=== PATIENT | female | born 1980 | race American Indian/Alaskan Native ===

== ENCOUNTER 2019-02-22 10:42 | Emergency (ER) | payer MEDICAID ==
--- NOTE | 2019-02-22 11:26 | XRay Report ---
LEFT KNEE, 3 views: History: Fall, pain The bony architecture is intact without evidence of fracture or dislocation. No significant soft tissue abnormality is seen. IMPRESSION: Normal left knee.
--- NOTE | 2019-02-22 11:27 | XRay Report ---
LEFT ANKLE, 3 views: History: Fall, pain. Bone mineralization is normal. An oblique minimally displaced distal left fibular fracture is identified just superior to the ankle joint. Displacement measures 1-2 mm. The distal tibia and talar dome are intact. No joint pathology. Moderate lateral soft tissue swelling. IMPRESSION: Distal fibular fracture.
[2019-02-22] MEDS ORDERED: NORCO 5/325 PO ONE (11:49)
[2019-02-22] MEDS ORDERED: IBUPROFEN PO ONE (11:49)
--- NOTE | 2019-02-22 11:49 | Emergency Department Report ---
ED Extremity Problem HPI - General Chief complaint: Extremity Injury, Lower Stated complaint: HURT ANKLE/FOOT Time Seen by Provider: 02/22/19 11:31 Source: patient Mode of arrival: Wheelchair Limitations: Physical Limitation - History of Present Illness Initial comments: Patient is a 38-year-old black female who suffered a slip and fall last night after leaving an establishment. Patient states that she has pain in the lateral distal lower extremity near the ankle with swelling as well as the medial left knee. Patient has been able to bear weight however she does have a severe limp. Patient states the pain is 8 out of 10 and is throbbing. Patient denies any head trauma at this time. - Related Data Previous Rx's Medication Instructions Recorded Last Taken Type HYDROcodone/ACETAMINOPHEN 1 each PO Q6HR PRN #12 tablet 02/22/19 Unknown Rx [Hydrocodone-Acetamin 5-325 mg] Ibuprofen [Ibu] 800 mg PO Q8H PRN #20 tablet 02/22/19 Unknown Rx Allergies Allergy/AdvReac Type Severity Reaction Status Date / Time No Known Allergies Allergy Unverified 02/22/19 10:43 ED Review of Systems ROS: Stated complaint: HURT ANKLE/FOOT Other details as noted in HPI Comment: All other systems reviewed and negative ED Past Medical Hx - Social History Smoking Status: Never Smoker Substance Use Type: None - Medications Home Medications: Home Medications Medication Instructions Recorded Confirmed Last Taken Type HYDROcodone/ACETAMINOPHEN 1 each PO Q6HR PRN #12 tablet 02/22/19 Unknown Rx [Hydrocodone-Acetamin 5-325 mg] Ibuprofen [Ibu] 800 mg PO Q8H PRN #20 tablet 02/22/19 Unknown Rx ED Physical Exam - General Limitations: Physical Limitation General appearance: alert, in no apparent distress - Head Head exam: Present: atraumatic, normocephalic - Eye Eye exam: Present: normal appearance - ENT ENT exam: Present: mucous membranes moist - Neck Neck exam: Present: normal inspection - Respiratory Respiratory exam: Absent: respiratory distress - GI/Abdominal GI/Abdominal exam: Present: soft. Absent: distended - Extremities Exam Extremities exam: Present: normal inspection - Expanded Lower Extremity Exam Left Knee exam: Present: normal inspection, full ROM, tenderness (MCL area). Absent: swelling, abrasion, laceration, ecchymosis, deformity, dislocation, effusion Ankle exam: Present: tenderness (lateral malleolus area), swelling. Absent: full ROM - Back Exam Back exam: Present: normal inspection - Neurological Exam Neurological exam: Present: alert, oriented X3 - Psychiatric Psychiatric exam: Present: normal affect, normal mood - Skin Skin exam: Present: warm, dry, intact, normal color. Absent: rash ED Course Vital Signs 02/22/19 10:49 Temperature 99.5 F Pulse Rate 92 H Respiratory 18 Rate Blood Pressure 128/81 O2 Sat by Pulse 97 Oximetry ED Medical Decision Making - Radiology Data [address] [address] XRay Report Signed Patient: TOBIN ROMO MR#: [id number] : 1980 Acct:[id number] Age/Sex: 38 / F ADM Date: 02/22/19 Loc: ED Attending Dr: Ordering Physician: ZULMA HOOVER MD Date of Service: 02/22/19 Procedure(s): XR knee 3V LT Accession Number(s): [id number] cc: ZULMA HOOVER MD Fluoro Time In Minutes: LEFT KNEE, 3 views: History: Fall, pain The bony architecture is intact without evidence of fracture or dislocation. No significant soft tissue abnormality is seen. IMPRESSION: Normal left knee. Transcribed By: TTR Dictated By: LIAM BRENNAN JR, MD Electronically Authenticated By: LIAM BRENNAN JR, MD Signed Date/Time: 02/22/191121 DD/ 112 TD/TT: 02/22/[address] [address] XRay Report Signed Patient: TOBIN ROMO MR#: [id number] : 1980 Acct:[id number] Age/Sex: 38 / F ADM Date: 02/22/19 Loc: ED Attending Dr: Ordering Physician: ZULMA HOOVER MD Date of Service: 02/22/19 Procedure(s): XR ankle 3+V LT Accession Number(s): [id number] cc: ZULMA HOOVER MD Fluoro Time In Minutes: LEFT ANKLE, 3 views: History: Fall, pain. Bone mineralization is normal. An oblique minimally displaced distal left fibular fracture is identified just superior to the ankle joint. Displacement measures 1-2 mm. The distal tibia and talar dome are intact. No joint pathology. Moderate lateral soft tissue swelling. IMPRESSION: Distal fibular fracture. Transcribed By: TTR Dictated By: LIAM BRENNAN JR, MD Electronically Authenticated By: LIAM BRENNAN JR, MD Signed Date/Time: 02/22/19 1123 DD/ 112 TD/TT: 02/22/19 1123 - Medical Decision Making Patient was placed in a posterior short leg splint was sized area on the left lower extremity to immobilize her fibula fracture. Patient's left knee likely has a distal sprain and will be Martinez wrapped. Patient be referred to Dr. Blanc with orthopedics. Patient given pain meds. This constitutes fracture care. Critical care attestation.: If time is entered above; I have spent that time in minutes in the direct care of this critically ill patient, excluding procedure time. ED Disposition Clinical Impression: Fibula fracture Qualifiers: Encounter type: initial encounter Fibula location: distal Fracture type: closed Fracture morphology: unspecified fracture morphology Laterality: left Qualified Code(s): S82.832A - Other fracture of upper and lower end of left fibula, initial encounter for closed fracture Knee MCL sprain Qualifiers: Encounter type: initial encounter Laterality: left Qualified Code(s): S83.412A - Sprain of medial collateral ligament of left knee, initial encounter Disposition: TO HOME OR SELFCARE Is pt being admited?: No Does the pt Need Aspirin: No Condition: Stable Instructions: Ankle Fracture (ED), Knee Sprain (ED) Referrals: JUMANA BLANC MD [Staff Physician] - 3-5 Days Time of Disposition: 11:57
[2019-02-22 13:03] VITALS: BP 122/78
== END 2019-02-22 13:01 | disposition home or self-care (01) ==
LOC: ED 10:42
DX: S82.832A Other fracture of upper and lower end of left fibula, initial encounter for closed fracture (principal); S83.412A Sprain of medial collateral ligament of left knee, initial encounter; W01.0XXA Fall on same level from slipping, tripping and stumbling without subsequent striking against object, initial encounter; Y93.89 Activity, other specified; Y92.89 Other specified places as the place of occurrence of the external cause; Y99.8 Other external cause status
CPT/HCPCS: 99283

== ENCOUNTER 2020-07-03 17:52 | Emergency (ER) | payer SELFPAY ==
[2020-07-04] MEDS ORDERED: diphenhydrAMINE 50 MG/ML VIAL IV ONE (00:51)
[2020-07-04] MEDS ORDERED: SODIUM CHLORIDE 0.9% 1000 ML 1,000 ML IV ONE (00:51)
[2020-07-04] MEDS ORDERED: ONDANSETRON 4 MG/2 ML INJ IV ONE (00:51)
[2020-07-04] MEDS ORDERED: KETOROLAC 30 MG/1 ML INJ IV ONE (00:51)
--- NOTE | 2020-07-04 01:24 | Emergency Department Report ---
ED Headache HPI - General Chief Complaint: Headache Stated Complaint: HEADACHE,NAUSEA,BODY PAIN Time Seen by Provider: 07/03/20 23:34 Source: patient - History of Present Illness Initial Comments: 39-year-old -Ivorian female presents to the emergency room complaining of a headache neck pain and shoulder pain x1 week. Patient states that she is already taking hydrocodone for pain due to back procedure on 05/11/2020. Patient states that the headache is located in the frontal and temporal and top of her head. Patient states that she did see her primary care provider and he told her that she was stressed. Patient does admit that she suffers from anxiety. Patient denies any fever no chills does have some slight nausea but no vomiting. Patient does admit to photophobia. Timing/Duration: 1 week Head Injury Location: frontal, temporal, occipital, parietal Recent Head Trauma: no recent headache/trauma Allergies/Adverse Reactions: Allergies No Known Allergies Allergy (Unverified 02/22/19 10:43) Home Medications: Ambulatory Orders HYDROcodone/ACETAMINOPHEN [Hydrocodone-Acetamin 5-325 mg] 1 each PO Q6HR PRN #12 tablet 02/22/19 Ibuprofen [Ibu] 800 mg PO Q8H PRN #20 tablet 02/22/19 Butalb/Acetaminophen/Caffeine [Fioricet 50-300-40 mg CAP] 1 cap PO Q8HR PRN #15 cap 07/04/20 tiZANidine [Zanaflex 4mg TAB] 4 mg PO Q8H PRN #15 tablet 07/04/20 ED Review of Systems ROS: Stated complaint: HEADACHE,NAUSEA,BODY PAIN Other details as noted in HPI ED Past Medical Hx - Past Medical History Previous Medical History?: Yes Hx Hypertension: Yes - Surgical History Past Surgical History?: Yes Additional Surgical History: Back surgery 05/11/20 - Social History Smoking Status: Never Smoker Substance Use Type: None - Medications Home Medications: Home Medications Medication Instructions Recorded Confirmed Last Taken Type HYDROcodone/ACETAMINOPHEN 1 each PO Q6HR PRN #12 tablet 02/22/19 Unknown Rx [Hydrocodone-Acetamin 5-325 mg] Ibuprofen [Ibu] 800 mg PO Q8H PRN #20 tablet 02/22/19 Unknown Rx Butalb/Acetaminophen/Caffeine 1 cap PO Q8HR PRN #15 cap 07/04/20 Unknown Rx [Fioricet 50-300-40 mg CAP] tiZANidine [Zanaflex 4mg TAB] 4 mg PO Q8H PRN #15 tablet 07/04/20 Unknown Rx ED Physical Exam - General Limitations: No Limitations General appearance: alert, in no apparent distress - Head Head exam: Present: atraumatic, normocephalic - Eye Eye exam: Present: normal appearance - ENT ENT exam: Present: mucous membranes moist - Neck Neck exam: Present: tenderness (Trapeze) - Respiratory Respiratory exam: Present: normal lung sounds bilaterally. Absent: respiratory distress - Cardiovascular Cardiovascular Exam: Present: regular rate, normal rhythm. Absent: systolic murmur, diastolic murmur, rubs, gallop - GI/Abdominal GI/Abdominal exam: Present: soft, normal bowel sounds - Neurological Exam Neurological exam: Present: alert, oriented X3 - Expanded Neurological Exam Expanded Cranial nerves: EOM's Intact: Normal, Gag Reflex: Normal, Tongue Deviation: Normal, Nystagmus: Normal, Facial Sensation: Normal, Facial Palsy with Forehead Movement: Normal, Facial Palsy without Forehead Movement: Normal Cerebellar function: Finger to Nose: Normal, Heel to Moreno: Normal, Romberg: Normal Upper motor neuron: Santiago Neglect: Normal, Pronator Drift: Normal, Babinski Sign: Normal, Sensory Extinction: Normal Sensory exam: Upper Extremity Light Touch: Normal, Upper Extremity Pin Prick: Normal, Upper Extremity Temperature: Normal, UE 2 Point Discrimination: Normal, Lower Extremity Light Touch: Normal, Lower Extremity Pin Prick: Normal, Lower Extremity Temperature: Normal, LE 2 Point Discrimination: Normal Motor strength exam: RUE: 4, LUE: 4, RLE: 4, LLE: 4 Best Eye Response (Cristian): (4) open spontaneously Best Motor Response (Cristian): (6) obeys commands Best Verbal Response (Dixon): (5) oriented Dixon Total: 15 - Psychiatric Psychiatric exam: Present: normal affect, normal mood - Skin Skin exam: Present: warm, dry, intact, normal color. Absent: rash ED Course Vital Signs 07/03/20 18:18 Temperature 97.8 F Pulse Rate 93 H Respiratory 16 Rate Blood Pressure 153/94 [Right] O2 Sat by Pulse 100 Oximetry - Reevaluation(s) Reevaluation #1: 07/04/20 01:40 Reevaluation of patient. She states that her headache is starting to improve. ED Medical Decision Making - Medical Decision Making 39-year-old -I[place]ian female presents to the emergency room complaining of a headache neck pain and shoulder pain x1 week. Patient states that she is already taking hydrocodone for pain due to back procedure on 05/11/2020. Patient states that the headache is located in the frontal and temporal and top of her head. Patient states that she did see her primary care provider and he told her that she was stressed. Patient does admit that she suffers from anxiety. Patient denies any fever no chills does have some slight nausea but no vomiting. Patient does admit to photophobia. Patient's been given IV normal saline, Benadryl 25 mg IV, Zofran 4 mg IV and Toradol 15 mg IV. I also ordered Zanaflex 4 mg. Critical care attestation.: If time is entered above; I have spent that time in minutes in the direct care of this critically ill patient, excluding procedure time. ED Disposition Clinical Impression: Stress headache Disposition: DC- TO HOME OR SELFCARE Is pt being admited?: No Does the pt Need Aspirin: No Condition: Stable Instructions: Acute Headache (ED), Aspirin/Caffeine (By mouth), Tension Headache (ED) Additional Instructions: Please take medication as prescribed. Increase your water intake. Follow-up with a neurologist if your headaches continue. Prescriptions: Butalb/Acetaminophen/Caffeine [Fioricet 50-300-40 mg CAP] 1 cap PO Q8HR PRN #15 cap PRN Reason: Headache tiZANidine [Zanaflex 4mg TAB] 4 mg PO Q8H PRN #15 tablet PRN Reason: Muscle Spasm Referrals: FRANCINE CAMPOS MD [Primary Care Provider] - 3-5 Days JOSE EDUARDO BHAGAT MD [Referring] - 3-5 Days Forms: Work/School Release Form(ED)
[2020-07-04] MEDS ORDERED: tiZANidine TAB 4 MG TAB PO ONE (01:31)
[2020-07-04 02:58] VITALS: BP 142/86
== END 2020-07-04 02:46 | disposition home or self-care (01) ==
LOC: ED 17:52
DX: R51 Headache (principal); F43.9 Reaction to severe stress, unspecified; M54.2 Cervicalgia; I10 Essential (primary) hypertension; Z98.890 Other specified postprocedural states; Z79.1 Long term (current) use of non-steroidal anti-inflammatories (NSAID); Z79.899 Other long term (current) drug therapy
CPT/HCPCS: 96361; 96374; 96375; 99282; J1200; J1885; J2405; J7030

== ENCOUNTER 2020-11-16 17:43 | Observation (INO) | payer BC, MEDICAID ==
--- NOTE | 2020-11-16 17:54 | Emergency Department Report ---
Blank Doc - Documentation Documentation: 40-year-old female that presents with CP and SOB. This initial assessment/diagnostic orders/clinical plan/treatment(s) is/are subject to change based on patient's health status, clinical progression and re- assessment by fellow clinical providers in the ED. Further treatment and workup at subsequent clinical providers discretion. Patient/guardians urged not to elope from the ED as their condition may be serious if not clinically assessed and managed. Initial orders include: 1- Patient sent to [facility] for further evaluation and treatment 2- cardiac workup
[2020-11-16 18:23] LABS: Basophils % (Auto) 0.6 % (0.0-1.8); Eosinophils # (Auto) 0.2 K/mm3 (0.0-0.4); Eosinophils % (Auto) 3.8 % (0.0-4.3); Hematocrit 35.4 % (30.3-42.9); Hemoglobin 11.7 gm/dl (10.1-14.3); Lymphocytes # (Auto) 2.6 K/mm3 (1.2-5.4); Mean Corpuscular HGB Conc 33 % (30-34); Mean Corpuscular Volume 86 fl (79-97); Monocytes # (Auto) 0.5 K/mm3 (0.0-0.8); Monocytes % (Auto) 9.6 % (0.0-7.3); Platelet Count 279 K/mm3 (140-440); Red Blood Count 4.11 M/mm3 (3.65-5.03); Red Cell Distribution Width 14.1 % (13.2-15.2)
[2020-11-16 18:39] LABS: Alanine Aminotransferase 14 units/L (7-56); Albumin 3.9 g/dL (3.9-5); Blood Urea Nitrogen 14 mg/dL (7-17); Calcium 9.1 mg/dL (8.4-10.2); Hemolysis Index 5
[2020-11-16 18:46] LABS: BUN/Creatinine Ratio 23
--- NOTE | 2020-11-16 19:20 | XRay Report ---
CHEST PA AND LATERAL VIEWS INDICATION: Chest pain shortness of breath nausea. COMPARISON: None. FINDINGS: Support devices: None. Heart: Within normal limits. Lungs/Pleura: No acute pulmonary or pleural findings. There is scarring within the suprahilar right l scarlett. IMPRESSION: 1. No acute findings. Signer Name: Luis Eduardo Varela MD Signed: 11/16/2020 7:16 PM Workstation Name: [id number]
--- NOTE | 2020-11-16 22:08 | Emergency Department Report ---
HPI - General Chief Complaint: Chest Pain Time Seen by Provider: 11/16/20 17:53 - HPI HPI: Room 32 The patient is a 40-year-old female present with chief complaint of chest pain. The patient states she is had intermittent chest pain for the past 4 days. Patient describes her chest pain as a soreness is occasionally associated with shortness of breath. Patient denies vomiting or diaphoresis with her chest pain. Patient denies history of fever, cough or known contact with Covid positive patients. Patient currently gives her chest pain score of 3/10. Patient states she is never had a stress test or cardiac catheterization ED Past Medical Hx - Past Medical History Previous Medical History?: Yes Hx Hypertension: Yes - Surgical History Past Surgical History?: Yes Additional Surgical History: Back surgery 05/11/20 - Family History Family history: no significant - Social History Smoking Status: Current Some Day Smoker Substance Use Type: Alcohol (Occasional) - Medications Home Medications: Home Medications Medication Instructions Recorded Confirmed Last Taken Type HYDROcodone/ACETAMINOPHEN 1 each PO Q6HR PRN #12 tablet 02/22/19 Unknown Rx [Hydrocodone-Acetamin 5-325 mg] Ibuprofen [Ibu] 800 mg PO Q8H PRN #20 tablet 02/22/19 Unknown Rx Butalb/Acetaminophen/Caffeine 1 cap PO Q8HR PRN #15 cap 07/04/20 Unknown Rx [Fioricet 50-300-40 mg CAP] tiZANidine [Zanaflex 4mg TAB] 4 mg PO Q8H PRN #15 tablet 07/04/20 Unknown Rx ED Review of Systems ROS: Stated complaint: CHEST PAIN Other details as noted in HPI Constitutional: denies: diaphoresis Eyes: denies: eye pain ENT: denies: throat pain Respiratory: shortness of breath Cardiovascular: chest pain Endocrine: no symptoms reported Gastrointestinal: denies: vomiting Genitourinary: denies: dysuria Musculoskeletal: denies: back pain Neurological: denies: headache Physical Exam - Physical Exam Vital Signs: Vital Signs 11/16/20 17:55 Temperature 98.8 F Pulse Rate 85 Respiratory 18 Rate Blood Pressure 165/87 [Right] O2 Sat by Pulse 100 Oximetry Physical Exam: GENERAL: The patient is well-developed well-nourished female sitting in chair not appearing to be in acute distress. [] HEENT: Normocephalic. Atraumatic. Extraocular motions are intact. Patient has moist mucous membranes. NECK: Supple. Trachea midline CHEST/LUNGS: Clear to auscultation. There is no respiratory distress noted. HEART/CARDIOVASCULAR: Regular. There is no tachycardia. There is no gallop rub or murmur. ABDOMEN: Abdomen is soft, nontender. Patient has normal bowel sounds. There is no abdominal distention. SKIN: There is no rash. There is no edema. There is no diaphoresis. NEURO: The patient is awake, alert, and oriented. The patient is cooperative. The patient has normal speech MUSCULOSKELETAL: There is no evidence of acute injury. ED Course Vital Signs 11/16/20 17:55 Temperature 98.8 F Pulse Rate 85 Respiratory 18 Rate Blood Pressure 165/87 [Right] O2 Sat by Pulse 100 Oximetry ED Medical Decision Making - Lab Data Result diagrams: 11/16/20 18:05 11/16/20 18:05 - EKG Data -: EKG Interpreted by Me EKG shows normal: sinus rhythm Rate: normal - EKG Data When compared to previous EKG there are: previous EKG unavailable Interpretation: nonspecific ST-T wave jose luis (T wave inversion in lead III) - Radiology Data Radiology results: report reviewed (Chest x-ray), image reviewed (Chest x-ray) interpreted by me: Chest x-ray-no focal infiltrates, no pneumothorax, no foreign body seen [address] [address] XRay Report Signed Patient: TOBIN ROMO MR#: [id number] : 1980 Acct:[id number] Age/Sex: 40 / F ADM Date: 11/16/20 Loc: ED Attending Dr: Ordering Physician: BLANKA FULLER NP Date of Service: 11/16/20 Procedure(s): XR chest routine 2V Accession Number(s): [id number] cc: BLANKA FULLER NP Fluoro Time In Minutes: CHEST PA AND LATERAL VIEWS INDICATION: Chest pain shortness of breath nausea. COMPARISON: None. FINDINGS: Support devices: None. Heart: Within normal limits. Lungs/Pleura: No acute pulmonary or pleural findings. There is scarring within the suprahilar right lung. IMPRESSION: 1. No acute findings. Signer Name: Luis Eduardo Varela MD Signed: 11/16/2020 7:16 PM Workstation Name: [id number] Transcribed By: JACE Dictated By: Luis Eduardo Varela MD Electronically Authenticated By: Luis Eduardo Varela MD Signed Date/Time: 11/16/201915 DD/ 14 TD/TT: - Differential Diagnosis ACS, pericarditis, GERD Critical care attestation.: If time is entered above; I have spent that time in minutes in the direct care of this critically ill patient, excluding procedure time. ED Disposition Clinical Impression: Chest pain Disposition: OP ADMIT IP TO THIS HOSP Is pt being admited?: Yes Does the pt Need Aspirin: Yes Condition: Fair Instructions: Chest Pain (ED) Referrals: PRIMARY CARE,MD [Primary Care Provider] - 3-5 Days Time of Disposition: 22:15 (Hospitalist paged (Dr Mcintosh)) HEART Score - HEART Score History: Moderately suspicious EKG: Non-specific Age: < 45 Risk factors: 1-2 risk factors Troponin: Troponin T < 0.010 ng/mL (0.00-0.029) 11/16/20 20:59 Troponin: 1-3x normal limit HEART Score: 4
[2020-11-16] MEDS ORDERED: ONDANSETRON 4 MG/2 ML INJ IV PRN (23:21)
[2020-11-16] MEDS ORDERED: hydrALAZINE 20 MG/1 ML INJ IV PRN (23:21)
[2020-11-16] MEDS ORDERED: NITROGLYCERIN 0.4 MG TAB SUBL SL PRN (23:21)
[2020-11-16] MEDS ORDERED: MORPHINE 4 MG/1 ML INJ IV PRN (23:21)
[2020-11-16] MEDS ORDERED: ACETAMINOPHEN 325 MG TAB PO PRN ×2 (23:21)
--- NOTE | 2020-11-16 23:33 | History and Physical Report ---
History of Present Illness Date of examination: 11/16/20 Date of admission: 11/16/20 22:18 Chief complaint: Chest Pain History of present illness: 40-year-old female with significant past medical history of hypertension and current daily tobacco smoker presenting to the emergency room today complaining of chest pain which has been ongoing for the past 4 days. Chest pain has been intermittent and is left-sided and is associated with some shortness of breath. She denies any nausea vomiting, no fever or chills, no headache or dizziness, no diaphoresis. Patient denies any sick contacts and no recent travel. Denies any contact with anyone with COVID-19. On a scale of 10 chest pain is about 3/10 in severity. Work-up in the emergency room today including EKG and chest x-ray and lab works are unremarkable. Patient has not had any cardiac work-up in the past. Patient admitted with chest pain and for further work-up. Past History Past Medical History: hypertension Past Surgical History: No surgical history Social history: smoking (Current daily smoker), alcohol abuse (Occasionally) Family history: no significant family history Medications and Allergies Allergies Allergy/AdvReac Type Severity Reaction Status Date / Time metoclopramide [From Reglan] AdvReac Intermediate Unknown Verified 11/16/20 22:28 Home Medications Medication Instructions Recorded Confirmed Last Taken Type amLODIPine [Norvasc] 10 mg PO DAILY 11/17/20 11/17/20 Unknown History Review of Systems Constitutional: no fever, no chills Ears, nose, mouth and throat: no nasal congestion, no sore throat Cardiovascular: chest pain, no palpitations Respiratory: no cough, no shortness of breath Gastrointestinal: no abdominal pain, no nausea, no vomiting, no diarrhea Genitourinary Female: no pelvic pain, no flank pain, no dysuria Musculoskeletal: no neck pain, no low back pain Integumentary: no rash, no pruritis Neurological: no headaches, no confusion Psychiatric: no anxiety, no depression Exam - Constitutional Vitals: Temp Pulse Resp BP Pulse Ox 98.8 F 85 18 165/87 100 11/16/20 17:55 11/16/20 17:55 11/16/20 17:55 11/16/20 17:55 11/16/20 17:55 General appearance: Present: no acute distress, well-nourished - EENT Eyes: Present: PERRL, EOM intact. Absent: scleral icterus ENT: hearing intact, clear oral mucosa, dentition normal - Neck Neck: Present: supple, normal ROM - Respiratory Respiratory effort: normal Respiratory: bilateral: CTA - Cardiovascular Rhythm: regular Heart Sounds: Present: S1 & S2. Absent: gallop, systolic murmur, diastolic murmur, rub - Extremities Extremities: no ischemia, pulses intact, pulses symmetrical, No edema, Full ROM Peripheral Pulses: within normal limits - Abdominal General gastrointestinal: Present: soft, non-tender, non-distended, normal bowel sounds. Absent: mass - Integumentary Integumentary: Present: clear, warm, dry. Absent: rash - Musculoskeletal Musculoskeletal: strength equal bilaterally - Psychiatric Psychiatric: appropriate mood/affect, intact judgment & insight, memory intact, cooperative - Neurologic Neurologic: CNII-XII intact, no focal deficits, moves all extremities HEART Score - HEART Score History: Moderately suspicious EKG: Non-specific Age: < 45 Risk factors: 1-2 risk factors Troponin: Troponin T < 0.010 ng/mL (0.00-0.029) 11/16/20 20:59 Troponin: 1-3x normal limit HEART Score: 4 Results - Labs CBC & Chem 7: 11/17/20 00:00 11/16/20 23:56 Labs: Abnormal lab results 11/16/20 11/16/20 Range/Units 18:05 18:05 Lymph % (Auto) 47.0 H (13.4-35.0) % [place] % (Auto) 9.6 H (0.0-7.3) % Seg Neutrophils % 39.0 L (40.0-70.0) % Glucose 121 H (65-100) mg/dL Assessment and Plan - Patient Problems (1) Chest pain Current Visit: Yes Status: Acute Plan to address problem: Patient admitted to telemetry. Will check serial cardiac enzymes. Patient placed on aspirin, sublingual nitroglycerin and IV morphine as needed for chest pain. We will schedule patient for echocardiogram and stress test. We will place consult to cardiology for evaluation. (2) Hypertension Current Visit: Yes Status: Acute Plan to address problem: We will resume routine home medications and monitor vital signs closely. (3) DVT prophylaxis Current Visit: Yes Status: Acute Plan to address problem: Patient placed on subcutaneous Lovenox. (4) Full code status Current Visit: Yes Status: Acute Plan to address problem: Patient is a full code.
[2020-11-17 00:25] LABS: BUN/Creatinine Ratio 20; Blood Urea Nitrogen 10 mg/dL (7-17); Calcium 9.2 mg/dL (8.4-10.2); Hemolysis Index 13
[2020-11-17 00:41] LABS: Basophils % (Auto) 0.4 % (0.0-1.8); Eosinophils # (Auto) 0.2 K/mm3 (0.0-0.4); Eosinophils % (Auto) 3.7 % (0.0-4.3); Hematocrit 36.6 % (30.3-42.9); Lymphocytes # (Auto) 1.9 K/mm3 (1.2-5.4); Lymphocytes % (Auto) 38.3 % (13.4-35.0); Mean Corpuscular HGB Conc 33 % (30-34); Mean Corpuscular Volume 87 fl (79-97); Monocytes # (Auto) 0.5 K/mm3 (0.0-0.8); Monocytes % (Auto) 9.5 % (0.0-7.3); Platelet Count 278 K/mm3 (140-440); Red Blood Count 4.22 M/mm3 (3.65-5.03); Red Cell Distribution Width 14.3 % (13.2-15.2)
[2020-11-17 03:35] LABS: Chol/HDL Ratio 1.6 %
[2020-11-17] MEDS ORDERED: REGADENOSON 0.4 MG/5 ML INJ IV ONE (08:46)
[2020-11-17] MEDS ORDERED: ASPIRIN EC 325 MG TAB PO SCH (10:00)
--- NOTE | 2020-11-17 10:47 | Discharge Summary ---
Providers - Providers Date of Admission: 11/16/20 22:18 Date of discharge: 11/17/20 Attending physician: AUTUMN CLEMENTS 11/16/20 Consult to Cardiac Rehabilitation [CONS] Routine Reason For Exam: Phase I 11/16/20 23:23 Consult to Cardiology [CONS] Routine Consulting Provider: NIYA COSTA Reason For Exam: CHEST PAIN Primary care physician: LEGAL BILLING ANALYST Hospitalization Reason for admission: cp Condition: Fair Hospital course: 40-year-old female with significant past medical history of hypertension and current daily tobacco smoker presenting to the emergency room today complaining of chest pain which has been ongoing for the past 4 days. Chest pain was intermittent and left-sided associated with some shortness of breath. Work-up in the emergency room including EKG, chest x-ray and cardiac isoenzymes unremarkable. Patient has not had any cardiac work-up in the past. Patient admitted with chest pain and for further work-up. The patient is to undergo stress test and echocardiogram and if found to be negative will be discharged home. Cardiology has been consulted and will evaluate the patient. Patient has a history of GERD which is most likely etiology of chest pain. Dedicated discharge time 35 minutes Disposition: DC-01 TO HOME OR SELFCARE Time spent for discharge: 35 - Discharge Diagnoses (1) Chest pain Status: Acute (2) Hypertension Status: Acute Core Measure Documentation - Palliative Care Palliative Care/ Comfort Measures: Not Applicable - Core Measures Any of the following diagnoses?: none Exam - Constitutional Vitals: Temp Pulse Resp BP Pulse Ox 98.3 F 83 18 131/94 100 11/17/20 08:00 11/17/20 08:00 11/17/20 08:00 11/17/20 08:00 11/17/20 08:00 General appearance: Present: no acute distress, well-nourished - EENT Eyes: Present: PERRL ENT: hearing intact, clear oral mucosa - Neck Neck: Present: supple, normal ROM - Respiratory Respiratory effort: normal Respiratory: bilateral: CTA - Cardiovascular Heart Sounds: Present: S1 & S2. Absent: rub, click - Extremities Extremities: pulses symmetrical, No edema Peripheral Pulses: within normal limits - Abdominal General gastrointestinal: Present: soft, non-tender, non-distended, normal bowel sounds Female genitourinary: Present: normal - Integumentary Integumentary: Present: clear, warm, dry - Musculoskeletal Musculoskeletal: gait normal, strength equal bilaterally - Psychiatric Psychiatric: appropriate mood/affect, intact judgment & insight - Neurologic Neurologic: CNII-XII intact, moves all extremities Plan Activity: advance as tolerated Weight Bearing Status: Weight Bear as Tolerated Diet: low fat, low cholesterol, low salt Follow up with: PRIMARY CAREMD [Primary Care Provider] - 3-5 Days NIYA COSTA MD [Staff Physician] - 7 Days Prescriptions: amLODIPine 10 mg PO DAILY #30
--- NOTE | 2020-11-17 12:04 | Treadmill Report ---
THALLIUM STRESS TEST REASON FOR STUDY: Chest pain. LEFT VENTRICLE: Left ventricular chamber size is within normal spread. Perfusion study demonstrates homogeneous uptake of the tracer in all segments, no defects identified. Gated analysis demonstrates normal left ventricular systolic function, ejection fraction 73%. CONCLUSION: Normal myocardial perfusion study. JOB# [id number] CA/NTS
--- NOTE | 2020-11-17 12:14 | Consultation ---
History of Present Illness Consult date: 11/17/20 Consult reason: chest pain History of present illness: The patient is a 40-year-old woman with a history of hypertension, no prior c ardiac history. She presented to the hospital with atypical, nonexertional chest pain. ECG was a normal sinus rhythm with normal early repolarization changes. Serial cardiac troponin levels were negative. Chest x-ray was normal size cardiac silhouette and clear lungs. Today, she underwent an exercise thallium stress test, during which he exercised for 6 minutes with no chest pain and no ST changes of ischemia. The thallium perfusion images are normal. Past History Past Medical History: hypertension Past Surgical History: No surgical history Social history: smoking (Current daily smoker), alcohol abuse (Occasionally) Family history: no significant family history Medications and Allergies Allergies Allergy/AdvReac Type Severity Reaction Status Date / Time metoclopramide [From Reglan] AdvReac Intermediate Unknown Verified 11/16/20 22:28 Home Medications Medication Instructions Recorded Confirmed Last Taken Type Aspirin EC [Ecotrin] 325 mg PO QDAY tablet 11/17/20 Unknown Rx amLODIPine 10 mg PO DAILY #30 11/17/20 Unknown Rx Active Meds: Active Medications Acetaminophen (Acetaminophen 325 Mg Tab) 650 mg PO Q4H PRN PRN Reason: Pain MILD(1-3)/Fever >100.5/JOHN Aspirin (Aspirin Ec 325 Mg Tab) 325 mg PO QDAY PEE Enoxaparin Sodium (Enoxaparin 40 Mg/0.4 Ml Inj) 40 mg SUB-Q QDAY@2200 PEE; Protocol Hydralazine HCl (Hydralazine 20 Mg/1 Ml Inj) 10 mg IV Q6HR PRN PRN Reason: FOR SBP > target Morphine Sulfate (Morphine 4 Mg/1 Ml Inj) 2 mg IV Q5MIN PRN PRN Reason: Chest Pain Nitroglycerin (Nitroglycerin 0.4 Mg Tab Subl) 0.4 mg SL Q5M PRN PRN Reason: Chest Pain Ondansetron HCl (Ondansetron 4 Mg/2 Ml Inj) 4 mg IV Q8H PRN PRN Reason: Nausea And Vomiting Sodium Chloride (Sodium Chloride 0.9% 10 Ml Flush Syringe) 10 ml IV BID PEE Sodium Chloride (Sodium Chloride 0.9% 10 Ml Flush Syringe) 10 ml IV PRN PRN PRN Reason: LINE FLUSH Review of Systems Cardiovascular: chest pain, no orthopnea, no palpitations, no rapid/irregular heart beat, no edema, no syncope, no lightheadedness, no shortness of breath Physical Examination Vital Signs Temp Pulse Resp BP Pulse Ox 98.8 F 85 18 165/87 100 11/16/20 17:55 11/16/20 17:55 11/16/20 17:55 11/16/20 17:55 11/16/20 17:55 General appearance: no acute distress HEENT: Positive: PERRL Neck: Positive: neck supple Cardiac: Positive: Reg Rate and Rhythm Lungs: Positive: clear to auscultation Neuro: Positive: Grossly Intact Abdomen: Positive: Soft Female genitourinary: deferred Skin: Positive: Clear Extremities: Absent: edema Results 11/17/20 00:00 11/16/20 23:56 Cardiac Enzymes 11/16/20 Range/Units 18:05 AST 17 (5-40) units/L Coagulation 11/16/20 Range/Units 18:05 APTT 30.3 (24.2-36.6) Sec. Lipids 11/16/20 Range/Units 23:56 Triglycerides 85 (2-149) mg/dL Cholesterol 119 (50-199) mg/dL HDL Cholesterol 74 H (40-59) mg/dL Cholesterol/HDL Ratio 1.60 % CBC 11/16/20 11/17/20 Range/Units 18:05 00:00 WBC 5.5 4.9 (4.5-11.0) K/mm3 RBC 4.11 4.22 (3.65-5.03) M/mm3 Hgb 11.7 12.0 (10.1-14.3) gm/dl Hct 35.4 36.6 (30.3-42.9) % Plt Count 279 278 (140-440) K/mm3 Lymph # (Auto) 2.6 1.9 (1.2-5.4) K/mm3 [place] # (Auto) 0.5 0.5 (0.0-0.8) K/mm3 Eos # (Auto) 0.2 0.2 (0.0-0.4) K/mm3 Baso # (Auto) 0.0 0.0 (0.0-0.1) K/mm3 Comprehensive Metabolic Panel 11/16/20 11/16/20 Range/Units 18:05 23:56 Sodium 137 137 (137-145) mmol/L Potassium 3.7 4.3 (3.6-5.0) mmol/L Chloride 104.1 103.6 (98-107) mmol/L Carbon Dioxide 23 24 (22-30) mmol/L BUN 14 10 (7-17) mg/dL Creatinine 0.6 0.5 L (0.6-1.2) mg/dL Glucose 121 H 127 H (65-100) mg/dL Calcium 9.1 9.2 (8.4-10.2) mg/dL AST 17 (5-40) units/L ALT 14 (7-56) units/L Alkaline Phosphatase 85 (35-129) units/L Total Protein 7.0 (6.3-8.2) g/dL Albumin 3.9 (3.9-5) g/dL EKG interpretations - Telemetry EKG Rhythm: Sinus Rhythm Assessment and Plan - Patient Problems (1) Atypical chest pain Current Visit: Yes Status: Acute Plan to address problem: Nonexertional chest pain, normal ECG, negative cardiac enzymes, normal exercise thallium stress test. An echocardiogram was ordered by the medical service, and will be reviewed when completed. Otherwise, no further cardiac chest pain work-up is warranted, stable for cardiac discharge.
[2020-11-17 14:38] LABS: Blood Urea Nitrogen 6 mg/dL (7-17); Calcium 9.1 mg/dL (8.4-10.2); Hemolysis Index 2
[2020-11-17 14:40] LABS: Basophils % (Auto) 0.3 % (0.0-1.8); Eosinophils # (Auto) 0.1 K/mm3 (0.0-0.4); Eosinophils % (Auto) 2.7 % (0.0-4.3); Hematocrit 34.8 % (30.3-42.9); Lymphocytes # (Auto) 2.2 K/mm3 (1.2-5.4); Lymphocytes % (Auto) 44.6 % (13.4-35.0); Mean Corpuscular HGB Conc 34 % (30-34); Mean Corpuscular Volume 85 fl (79-97); Monocytes # (Auto) 0.5 K/mm3 (0.0-0.8); Monocytes % (Auto) 9.6 % (0.0-7.3); Platelet Count 298 K/mm3 (140-440); Red Blood Count 4.09 M/mm3 (3.65-5.03); Red Cell Distribution Width 14.1 % (13.2-15.2)
[2020-11-17 14:47] LABS: BUN/Creatinine Ratio 12
[2020-11-17 14:54] LABS: INR 0.99 (0.87-1.13)
[2020-11-17 18:26] VITALS: BP 117/76
[2020-11-17] MEDS ORDERED: ENOXAPARIN 40 MG/0.4 ML INJ SUB-Q SCH (22:00)
== END 2020-11-17 21:21 | disposition home or self-care (01) ==
LOC: ED 17:43 → 4A 22:18
PROVIDERS: ADMIT Internal Medicine Geriatric Medicine; ATTEND Hospitalist
DX: R07.89 Other chest pain (principal); I10 Essential (primary) hypertension; F17.200 Nicotine dependence, unspecified, uncomplicated; Z98.890 Other specified postprocedural states
CPT/HCPCS: 36415; 71046; 78452; 80048; 80053; 80061; 84484; 84703; 85025; 85610; 85730; 93005; 93017; 93306; 99285; A9502; G0378

== ENCOUNTER 2021-06-16 14:15 | Emergency (ER) | payer BC, MEDICAID ==
[2021-06-16 14:22] VITALS: BP 150/103
--- NOTE | 2021-06-16 15:28 | Event Note ---
ED Screening Note Date of service: 06/16/21 Time: 15:27 ED Screening Note: 40-year-old female presents to the ER today with complaints of chest pain. Patient states that the pain initially started in her left chest, that it went over to her right chest and currently is in the substernal chest. She states that the pain has been constant since Monday. She reports associated nausea, shortness of breath and lightheadedness. Past medical history significant for hypertension, and she is a previous smoker but she quit about a year ago. She denies any PE DVT risk factors. This initial assessment/diagnostic orders/clinical plan/treatment(s) is/are subject to change based on patients health status, clinical progression and re- assessment by fellow clinical providers in the ED. Further treatment and workup at subsequent clinical providers discretion. Patient/guardian urged not to elope from the ED as their condition may be serious if not clinically assessed and managed. Initial orders include: Chest pain order set
[2021-06-16 15:48] LABS: Basophils % (Auto) 0.5 % (0.0-1.8); Eosinophils # (Auto) 0.1 K/mm3 (0.0-0.4); Hematocrit 34.6 % (30.3-42.9); Hemoglobin 11.6 gm/dl (10.1-14.3); Lymphocytes # (Auto) 1.6 K/mm3 (1.2-5.4); Mean Corpuscular HGB Conc 34 % (30-34); Mean Corpuscular Volume 87 fl (79-97); Monocytes # (Auto) 0.3 K/mm3 (0.0-0.8); Monocytes % (Auto) 8.3 % (0.0-7.3); Platelet Count 299 K/mm3 (140-440); Red Blood Count 3.99 M/mm3 (3.65-5.03); Red Cell Distribution Width 14.1 % (13.2-15.2)
--- NOTE | 2021-06-16 16:20 | XRay Report ---
CHEST 2 VIEWS INDICATION: chest pain. COMPARISON: 11/16/2020 FINDINGS: Support devices: None. Heart: Within normal limits. Lungs/pleura: No acute air space or interstitial disease. There is minor linear scarring superior to the right hilum which is unchanged. The lungs are clear otherwise. No pleural effusion or pneumothor ax. Additional findings: None. IMPRESSION: No acute findings. No change since 11/16/2020. Signer Name: Rodney Benton Jr, MD Signed: 06/16/2021 4:16 PM Workstation Name: [id number]
[2021-06-16 16:36] LABS: Alanine Aminotransferase 9 units/L (7-56); Blood Urea Nitrogen 6 mg/dL (7-17); Calcium 9.4 mg/dL (8.4-10.2); Hemolysis Index 3
[2021-06-16 16:41] LABS: BUN/Creatinine Ratio 15
--- NOTE | 2021-06-16 17:09 | Emergency Department Report ---
ED General Adult HPI - General Chief complaint: Chest Pain Stated complaint: CHEST PAIN Time Seen by Provider: 06/16/21 15:27 Source: patient Mode of arrival: Ambulatory Limitations: No Limitations - History of Present Illness Initial comments: Patient is a 40-year-old female who presents emergency room with complaints of "not feeling well" since 4 days ago. She has associated diffuse chest pain which she describes as a soreness. She states that she also has mild dry cough, shortness of breath, nausea, headache, fatigue, generalized weakness. Patient states that she was not feeling well and then later on the evening she got the COVID-19 vaccine she states that this was her first vaccination for COVID 19 but was already not feeling well prior to receiving the vaccination. She denies any fever, vomiting, diarrhea, pleuritic chest pain, exertional chest pain, leg swelling, calf pain. Past medical history of asthma and hypertension. Allergy to Reglan. She states that her only family cardiac history is that her grandmother had an NH over the age of 65. She denies any recent travel, recent surgery, recent immobilization, hormone use. pt had a normal stress test November 2020. - Related Data Previous Rx's Medication Instructions Recorded Last Taken Type Aspirin EC [Ecotrin] 325 mg PO QDAY tablet 11/17/20 Unknown Rx amLODIPine 10 mg PO DAILY #30 11/17/20 Unknown Rx Benzonatate [Tessalon Perles] 100 mg PO Q8HR PRN #12 capsule 06/16/21 Unknown Rx Butalb/Acetaminophen/Caffeine 1 cap PO Q8HR PRN #10 cap 06/16/21 Unknown Rx [Fioricet 50-300-40 mg CAP] Ondansetron [Zofran Odt] 4 mg PO Q8HR PRN #10 tab.rapdis 06/16/21 Unknown Rx guaiFENesin ER [Mucinex ER] 600 mg PO Q12H #14 tablet.er 06/16/21 Unknown Rx Allergies Allergy/AdvReac Type Severity Reaction Status Date / Time metoclopramide [From Reglan] AdvReac Intermediate Unknown Verified 06/16/21 14:18 ED Review of Systems ROS: Stated complaint: CHEST PAIN Other details as noted in HPI Comment: All other systems reviewed and negative ED Past Medical Hx - Past Medical History Hx Hypertension: Yes Hx Asthma: Yes - Surgical History Additional Surgical History: Back surgery 05/11/20 - Social History Smoking Status: Former Smoker - Medications Home Medications: Home Medications Medication Instructions Recorded Confirmed Last Taken Type Aspirin EC [Ecotrin] 325 mg PO QDAY tablet 11/17/20 Unknown Rx amLODIPine 10 mg PO DAILY #30 11/17/20 Unknown Rx Benzonatate [Tessalon Perles] 100 mg PO Q8HR PRN #12 capsule 06/16/21 Unknown Rx Butalb/Acetaminophen/Caffeine 1 cap PO Q8HR PRN #10 cap 06/16/21 Unknown Rx [Fioricet 50-300-40 mg CAP] Ondansetron [Zofran Odt] 4 mg PO Q8HR PRN #10 tab.rapdis 06/16/21 Unknown Rx guaiFENesin ER [Mucinex ER] 600 mg PO Q12H #14 tablet.er 06/16/21 Unknown Rx ED Physical Exam - General Limitations: No Limitations General appearance: alert, in no apparent distress - Head Head exam: Present: atraumatic, normocephalic - Eye Eye exam: Present: normal appearance - ENT ENT exam: Present: mucous membranes moist - Respiratory Respiratory exam: Present: normal lung sounds bilaterally. Absent: respiratory distress, wheezes, rales, rhonchi, stridor, chest wall tenderness, accessory muscle use, decreased breath sounds, prolonged expiratory - Cardiovascular Cardiovascular Exam: Present: regular rate, normal rhythm, normal heart sounds. Absent: systolic murmur, diastolic murmur, rubs, gallop - Neurological Exam Neurological exam: Present: alert, oriented X3 - Psychiatric Psychiatric exam: Present: normal affect, normal mood - Skin Skin exam: Present: warm, dry, intact ED Course Vital Signs 06/16/21 14:21 Temperature 98.8 F Pulse Rate 93 H Respiratory 22 Rate Blood Pressure 150/103 O2 Sat by Pulse 99 Oximetry ED Medical Decision Making - Lab Data Result diagrams: 06/16/21 15:24 06/16/21 15:24 Lab Results 06/16/21 06/16/21 06/16/21 Range/Units 15:24 15:24 15:24 WBC 3.2 L (4.5-11.0) K/mm3 RBC 3.99 (3.65-5.03) M/mm3 Hgb 11.6 (10.1-14.3) gm/dl Hct 34.6 (30.3-42.9) % MCV 87 (79-97) fl MCH 29 (28-32) pg MCHC 34 (30-34) % RDW 14.1 (13.2-15.2) % Plt Count 299 (140-440) K/mm3 Lymph % (Auto) 49.0 H (13.4-35.0) % [place] % (Auto) 8.3 H (0.0-7.3) % Eos % (Auto) 3.0 (0.0-4.3) % Baso % (Auto) 0.5 (0.0-1.8) % Lymph # (Auto) 1.6 (1.2-5.4) K/mm3 [place] # (Auto) 0.3 (0.0-0.8) K/mm3 Eos # (Auto) 0.1 (0.0-0.4) K/mm3 Baso # (Auto) 0.0 (0.0-0.1) K/mm3 Seg Neutrophils % 39.2 L (40.0-70.0) % Seg Neutrophils # 1.3 L (1.8-7.7) K/mm3 Sodium 139 (137-145) mmol/L Potassium 4.2 (3.6-5.0) mmol/L Chloride 104.6 (98-107) mmol/L Carbon Dioxide 28 (22-30) mmol/L Anion Gap 11 mmol/L BUN 6 L (7-17) mg/dL Creatinine 0.4 L (0.6-1.2) mg/dL Estimated GFR > 60 ml/min BUN/Creatinine Ratio 15 % Glucose 88 (65-100) mg/dL Calcium 9.4 (8.4-10.2) mg/dL Total Bilirubin 0.40 (0.1-1.2) mg/dL AST 14 (5-40) units/L ALT 9 (7-56) units/L Alkaline Phosphatase 62 (35-129) units/L Troponin T < 0.010 (0.00-0.029) ng/mL Total Protein 6.9 (6.3-8.2) g/dL Albumin 4.0 (3.9-5) g/dL Albumin/Globulin Ratio 1.4 % HCG, Qual (Negative) 06/16/21 06/16/21 Range/Units 15:24 15:24 WBC (4.5-11.0) K/mm3 RBC (3.65-5.03) M/mm3 Hgb (10.1-14.3) gm/dl Hct (30.3-42.9) % MCV (79-97) fl MCH (28-32) pg MCHC (30-34) % RDW (13.2-15.2) % Plt Count (140-440) K/mm3 Lymph % (Auto) (13.4-35.0) % [place] % (Auto) (0.0-7.3) % Eos % (Auto) (0.0-4.3) % Baso % (Auto) (0.0-1.8) % Lymph # (Auto) (1.2-5.4) K/mm3 [place] # (Auto) (0.0-0.8) K/mm3 Eos # (Auto) (0.0-0.4) K/mm3 Baso # (Auto) (0.0-0.1) K/mm3 Seg Neutrophils % (40.0-70.0) % Seg Neutrophils # (1.8-7.7) K/mm3 Sodium (137-145) mmol/L Potassium (3.6-5.0) mmol/L Chloride (98-107) mmol/L Carbon Dioxide (22-30) mmol/L Anion Gap mmol/L BUN (7-17) mg/dL Creatinine (0.6-1.2) mg/dL Estimated GFR ml/min BUN/Creatinine Ratio % Glucose (65-100) mg/dL Calcium (8.4-10.2) mg/dL Total Bilirubin (0.1-1.2) mg/dL AST (5-40) units/L ALT (7-56) units/L Alkaline Phosphatase (35-129) units/L Troponin T < 0.010 (0.00-0.029) ng/mL Total Protein (6.3-8.2) g/dL Albumin (3.9-5) g/dL Albumin/Globulin Ratio % HCG, Qual Negative (Negative) Vital Signs 06/16/21 14:21 Temperature 98.8 F Pulse Rate 93 H Respiratory 22 Rate Blood Pressure 150/103 O2 Sat by Pulse 99 Oximetry - EKG Data EKG shows normal: sinus rhythm, axis, intervals, QRS complexes, ST-T waves Rate: normal - EKG Data 06/16/21 17:06 PACs no STEMI - Radiology Data Radiology results: report reviewed Ordering Physician: TONYA TABOR Date of Service: 06/16/21 Procedure(s): XR chest routine 2V Accession Number(s): [id number] cc: TONYA TABOR Fluoro Time In Minutes: CHEST 2 VIEWS INDICATION: chest pain. COMPARISON: 11/16/2020 FINDINGS: Support devices: None. Heart: Within normal limits. Lungs/pleura: No acute air space or interstitial disease. There is minor linear scarring superior to the right hilum which is unchanged. The lungs are clear otherwise. No pleural effusion or pneumothorax. Additional findings: None. IMPRESSION: No acute findings. No change since 11/16/2020. Signer Name: Rodney Brennan Jr, MD Signed: 06/16/2021 4:16 PM Workstation Name: [id number] Transcribed By: TTR Dictated By: RODNEY BRENNAN JR, MD Electronically Authenticated By: RODNEY BRENNAN JR, MD Signed Date/Time: 06/16/211615 DD/ 14 TD/TT: - Medical Decision Making Patient is a 40-year-old female who presents emergency room with complaints of "not feeling well" since 4 days ago. She has associated diffuse chest pain which she describes as a soreness. She states that she also has mild dry cough, shortness of breath, nausea, headache, fatigue, generalized weakness. Patient states that she was not feeling well and then later on the evening she got the COVID-19 vaccine she states that this was her first vaccination for COVID 19 but was already not feeling well prior to receiving the vaccination. She denies any fever, vomiting, diarrhea, pleuritic chest pain, exertional chest pain, leg swelling, calf pain. Past medical history of asthma and hypertension. Allergy to Reglan. She states that her only family cardiac history is that her grandmother had an NH over the age of 65. She denies any recent travel, recent surgery, recent immobilization, hormone use. pt had a normal stress test November 2020. Vitals are stable. Labs are stable. Troponin is negative x2. EKG is within normal limits. Chest x-ray No acute findings. No change since 11/16/2020. Heart score is 2, low risk for cardiac event, do not suspect ACS at this time her symptoms have been ongoing for 4 days and she has other URI-like symptoms. PERC criteria negative for PE, PE unlikely. Symptoms appear most consistent with upper respiratory infection. She has no clinical signs of bacterial pneumonia or bacterial bronchitis at this time. Advised patient Please take medication as prescribed as needed. Increase your fluid intake over the next several days. Follow-up with your primary care doctor for reexamination. Recommend for you to get COVID-19 testing done as an outpatient and quarantine as necessary. Return to emergency room immediately for any new or worsening symptoms. Recommend for you to get an [id number] pulse oximetry meter and if oxygen is dropping below 93% return to emergency room immediately. Critical care attestation.: If time is entered above; I have spent that time in minutes in the direct care of this critically ill patient, excluding procedure time. ED Disposition Clinical Impression: Cough, Nausea Chest pain Qualifiers: Chest pain type: unspecified Qualified Code(s): R07.9 - Chest pain, unspecified Headache Qualifiers: Headache type: unspecified Headache chronicity pattern: acute headache Intractability: not intractable Qualified Code(s): R51.9 - Headache, unspecified Fatigue Qualifiers: Fatigue type: unspecified Qualified Code(s): R53.83 - Other fatigue Disposition: DC-01 TO HOME OR SELFCARE Is pt being admited?: No Does the pt Need Aspirin: No Condition: Stable Instructions: Upper Respiratory Infection, Adult, [id number] Additional Instructions: Please take medication as prescribed as needed. Increase your fluid intake over the next several days. Follow-up with your primary care doctor for reexamination. Recommend for you to get COVID-19 testing done as an outpatient and quarantine as necessary. Return to emergency room immediately for any new or worsening symptoms. Recommend for you to get an [id number] pulse oximetry meter and if oxygen is dropping below 93% return to emergency room immediately. Prescriptions: Butalb/Acetaminophen/Caffeine [Fioricet 50-300-40 mg CAP] 1 cap PO Q8HR PRN #10 cap PRN Reason: headache guaiFENesin ER [Mucinex ER] 600 mg PO Q12H #14 tablet.er Benzonatate [Tessalon Perles] 100 mg PO Q8HR PRN #12 capsule PRN Reason: cough Ondansetron [Zofran Odt] 4 mg PO Q8HR PRN #10 tab.rapdis PRN Reason: nausea/vomiting Referrals: PRIMARY CARE,MD [Primary Care Provider] - 2-3 Days Forms: Work/School Release Form(ED) Time of Disposition: 17:44 Print Language: YAKUT HEART Score - HEART Score History: Slightly suspicious EKG: Normal Age: < 45 Risk factors: 1-2 risk factors Troponin: Troponin T < 0.010 ng/mL (0.00-0.029) 06/16/21 15:24 Troponin T < 0.010 ng/mL (0.00-0.029) 06/16/21 15:24 Troponin: < normal limit HEART Score: 1
--- NOTE | 2021-06-17 11:09 | Electrocardiograph Report ---
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
== END 2021-06-16 18:09 | disposition home or self-care (01) ==
LOC: ED 14:15
DX: R07.89 Other chest pain (principal); R05 Cough; R06.02 Shortness of breath; R53.83 Other fatigue; R51.9 Headache, unspecified; R11.0 Nausea; I10 Essential (primary) hypertension; J45.909 Unspecified asthma, uncomplicated; Z87.891 Personal history of nicotine dependence; Z88.8 Allergy status to other drugs, medicaments and biological substances; Z79.82 Long term (current) use of aspirin; Z79.899 Other long term (current) drug therapy
CPT/HCPCS: 36415; 71046; 80053; 84484; 84703; 85025; 93005; 99283